=== PATIENT | female | born 1960 | race Caucasian/White ===

== ENCOUNTER → 2021-04-04 | Outpatient (CLI) | payer MEDICARE ==
--- NOTE | 2021-04-05 15:53 | SLEEP ---
DATE OF STUDY: 04/04/2021 POLYSOMNOGRAPHY REPORT OBJECTIVE: The patient is a 60-year-old female with an excessive somnolence rule out sleep apnea. Height 5 feet 5 inches, weight 235 pounds, body mass index 39. Miracle sleep score 7. INTERPRETATION: The sleep architecture is characterized by a sleep efficiency 71% across 8.3 hours of recording time. Stage volumes are appropriate for age. Sleep onset latency is 0.5 hours. Respiratory monitoring shows a total of 44 events per an apnea-hypopnea index of 7.4 events per hour of sleep. The minimum oxygen saturation is 85%. Respiratory events were not numerous enough to comply with split night study. The periodic limb movements of sleep index is 0 and no significant cardiac arrhythmias observed. IMPRESSION: Abnormal polysomnogram showing obstructive sleep apnea and hypopnea. RECOMMENDATIONS: The patient can be started on variable CPAP or also could return to the lab for an in-lab titration study. She should pursue weight loss and avoid sedatives and alcohol. Thank you for letting us help with the patient's care. DONALD DR: Ana TID: [id number] CC: JULIANNA Salcido
== END ==
LOC: RT 19:15
PROVIDERS: ATTEND Nurse Practitioner Family
DX: G47.33 Obstructive sleep apnea (adult) (pediatric) (principal); R40.0 Somnolence
CPT/HCPCS: 95810